=== PATIENT | male | born 1980 | race Caucasian/White ===

== ENCOUNTER 2018-02-05 16:32 | Emergency (ER) | payer SELFPAY ==
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
[2018-02-05] MEDS ORDERED: NS(*) 0.9% 1000 ML BAG 1,000 ML IV ONE (17:31)
[2018-02-05 17:40] LABS: PLATELET COUNT, AUTOMATED 301 K/uL (150-450)
[2018-02-05] MEDS ORDERED: SUCR1TAB85 PO (18:19)
[2018-02-05] MEDS ORDERED: OMEP40CA48 PO (18:19)
[2018-02-05] MEDS ORDERED: PANTOPRAZOLE SOD 40 MG TABEC PO ONE (18:20)
[2018-02-05 19:30] VITALS: BP 128/82
== END 2018-02-05 19:57 | disposition home or self-care (01) ==
LOC: ER 17:57
DX: K27.9 Peptic ulcer, site unspecified, unspecified as acute or chronic, without hemorrhage or perforation (principal)
CPT/HCPCS: 82040; 82150; 82247; 82274; 82310; 82374; 82435; 82565; 82947; 83690; 84075; 84132; 84155; 84295; 84450; 84460; 84520; 85025; 86140; 86677; 99283